=== PATIENT | male | born 1945 | race Caucasian/White ===

== ENCOUNTER → 2017-01-25 | Outpatient (CLI) | payer OTHER, MEDICARE ==
[~2017-01-25] VITALS: Ht 180.3 cm; Wt 104.1 kg
[~2017-01-25] MED LIST: ACID CONTROL150 MG PO; ASPIR-LOW81 MG PO; CAL MAG ZINC +1 EAC1 PO; CENTRUM SILVER1 EAC2 PO; CHROMIUM PICO400 MCG PO; CIALIS5 MG PO; CINNAMON500 MG PO; CO Q-10100 MG PO; CRANBERRY500 M1 PO; FENOFIBRATE160 MG PO; FISH OIL 1,0001 EAC9 PO; GEMFIBROZIL 60600 MG PO; GLIPIZIDE ER2.5 MG PO; GLUCOSAMINE CH1 EAC7 PO; INVOKANA300 MG PO; JANUVIA100 MG PO; LEVOTHYROXIN0.075 MG PO; LIPITOR40 MG PO; METFORMIN HCL1000 M1 PO; MOBIC15 MG PO; OCUVITE SOFTGE1 EAC1 PO; OMEPRAZOLE 20 M20 M1 PO; PLAVIX 75 MG TA75 M1 PO; VIMOVO 500-201 EACH PO; VITAMIN D-32000 UNIT PO; VITAMIN E400 UNIT PO; VITAMINC500 PO
--- NOTE | ~2017-01-25 | HPC ---
[facility] [place] [address] PAIN MANAGEMENT CONSULTATION Name: TORI KEYESD [id number] Admission: 01/25/17 Attend Phys: Arslan Escobedo MD Discharge: Date of : 45 Report #: [id number] THIS REPORT FOR: //name// CC: Camron Escobedo DATE OF SERVICE: 01/25/2017 FOLLOWUP COMPLAINT: Pain in the left back with pain going down the back of my leg and into my calf. HISTORY OF PRESENT ILLNESS: The patient is a 71-year-old gentleman who has been followed in the pain clinic. He has had myofascial pain in the past. He returns today indicating that he has noted a new pain. He has had sciatica in the past. This involved his right leg. He is now having pain and discomfort involving the left leg. Pain radiates down the lower portion of his back, down into the posterior thigh and involving the lateral portion of his calf muscle. He rates the pain as 10/10. He is unable to engage in activities of daily living because of this. He feels that there is a constant cramp radiating down into his left leg. PHYSICAL EXAMINATION: Blood pressure 131/82, pulse 72, respiratory rate 16, room air saturation 97%. The patient has pain and discomfort in the lower portion of his back with radiation down in the L5-S1 distribution on the left side. He notes some weakness, tenderness and pain involving the left calf. IMPRESSION: Lumbar radiculopathy. RECOMMENDATIONS: We discussed the treatment options with the patient. Risks and benefits of the procedure were discussed with the patient and his . Possible complications were reviewed. The patient elects to proceed. PROCEDURE NOTE: The patient was placed in the prone position. Fluoroscopy was used to identify the L5-S1 dermatomal area. After this area had been sterilely prepped with Betadine, 0.25% bupivacaine was infiltrated. A 17-gauge Tuohy with loss of resistance technique was used to gain access to the epidural space. There was no CSF, heme or paresthesia. Total of 80 mg Depo-Medrol, 40 mg triamcinolone and 2 mL of 0.25% bupivacaine was injected. The patient tolerated the procedure well. His pain decreased from 10 to 5 at the time of discharge. He will follow up in the future as needed. The patient will also try Mobic 7.5 mg 1 p.o. daily. He will stop this medication if he notes any GI complaints or [address] [address] PAIN MANAGEMENT CONSULTATION Name: TORI KEYESNARD Room #: REG [facility].#: [id number] Admission: 01/25/17 Attend Phys: Asrlan Escobedo MD Discharge: Date of : 45 Report #: [id number] discomfort. He will call us if he needs. We would like to thank you for letting us participate in his care. We hope he continues to improve. <ELECTRONICALLY SIGNED> By: Arslan Escobedo MD 01/31/17 0914 [id number] 2041 Arslan Escobedo MD /nt
[2017-01-25 11:37] VITALS: BP 131/82
== END | disposition home or self-care (01) ==
LOC: PAIN 06:28
DX: M54.16 Radiculopathy, lumbar region (principal)

== ENCOUNTER → 2017-02-13 | Outpatient (CLI) | payer OTHER, MEDICARE ==
[~2017-02-13] VITALS: Ht 180.3 cm; Wt 103.0 kg
[~2017-02-13] MED LIST changes: +FENOFIBRATE40 MG PO; +NEURONTIN 300300 M1 PO
--- NOTE | ~2017-02-13 | HPC ---
[facility] [place] [address] PAIN MANAGEMENT CONSULTATION Name: TORI KEYESD Room #: REG [facility].#: [id number] Admission: 02/13/17 Attend Phys: Arslan Escobedo MD Discharge: Date of : 45 Report #: [id number] THIS REPORT FOR: //name// CC: Camron Escobedo DATE OF SERVICE: 02/13/2017 FOLLOWUP COMPLAINT: Still having pain going down into the left calf. FOLLOWUP HISTORY: The patient is a 71-year-old gentleman who has been seen in the pain clinic because of lumbar radiculopathy involving the S1 nerve distribution. The patient continues to have pain and discomfort in his left calf. He notes that after standing and taking a few steps he notes worsening of his pain. This does limit his ability to engage in activities of daily living. He rates it intensity as a 6-8 depending on his level of ambulation. Walking and standing are problematic. Notes that his pain improves when repositioning, sitting when lying down. He continues to take medications. He denies any significant increase in his blood glucose level. Meloxicam 15 mg per day has not caused any GI complaints at this point. We would recommend that he stop any nonsteroidals if he starts noticing GI upsets. He continues to have a cramping sensation with radiation down the lateral portion of his right calf. PHYSICAL EXAMINATION: Blood pressure 146/75, pulse 79, respiratory rate 16, room air saturation 96%. The patient has pain and discomfort, which increases in intensity, radiating down into to his left calf and left buttocks. Ambulation exacerbates and worsens his discomfort. IMPRESSION: Continued lumbar radicular pain in the L5-S1 nerve distribution. Lumbar lumbar radiculopathy L5-S1 moderate endplate changes present at L5-S1. Mild loss of disk signal present. Hypertrophic facet changes result in mild bilateral neural foraminal narrowing, which is greater on the patient's left than the right. RECOMMENDATIONS: We discussed the treatment options with the patient. Risks and benefits of another epidural steroid injection were again reviewed. Possible complication of the procedure were discussed. The patient elects to proceed. PROCEDURE NOTE: The patient was placed in the prone position. Fluoroscopy was used to identify the L5-S1 distribution on the left. A 17-gauge Tuohy with loss of resistance technique was used to gain access to the epidural space. There was no CSF, heme or paresthesia. Total of 80 mg Depo-Medrol, 40 mg triamcinolone and 2 mL 0.25% bupivacaine was injected. The patient tolerated the procedure well. [place] [address] PAIN MANAGEMENT CONSULTATION Name: TORI KEYES Room #: REG [facility]#: [id number] Admission: 02/13/17 Attend Phys: Arslan Escobedo MD Discharge: Date of : 45 Report #: [id number] We would like to thank you for letting us participate in his care. We hope he continues to improve. By: [id number] Arslan Escobedo MD /nt
[2017-02-13 08:33] VITALS: BP 146/75
== END ==
LOC: PAIN 07:13
DX: M54.16 Radiculopathy, lumbar region (principal)

== ENCOUNTER → 2017-03-06 | Outpatient (CLI) | payer OTHER, MEDICARE ==
[~2017-03-06] VITALS: Ht 180.3 cm; Wt 103.8 kg
--- NOTE | ~2017-03-06 | HPC ---
[facility] [place] [address] PAIN MANAGEMENT CONSULTATION Name: TORI KEYES Room #: REG [facility].#: [id number] Admission: 03/06/17 Attend Phys: Arslan Escobedo MD Discharge: Date of : 45 Report #: [id number] THIS REPORT FOR: //name// CC: Camron Escobedo PRIMARY CARE PHYSICIAN: Camron Monahan M.D. FOLLOWUP COMPLAINT: The pain is better, but I'm still having some discomfort. FOLLOWUP HISTORY: The patient is a 71-year-old gentleman who has been seen in the pain clinic because of lumbar radiculopathy. He has undergone epidural steroid injections and gleaned benefits from these. He feels that his pain has improved greater than 50% since the injections. He still is having some discomfort in the low portion of his back with pain down into his left buttocks and into his left leg. He feels that another epidural steroid injection would be beneficial and rates his pain as a 4/10. He is still having some discomfort with movement, walking and standing. He does note some improvement when he is resting, lying down or sitting. At this juncture, he would like to proceed with another epidural steroid injection. He has had no problems with the injections. PHYSICAL EXAMINATION: Blood pressure 138/77, pulse 88, respiratory rate 14, room air saturation 97%. The patient has pain and discomfort in the lower portion of his back with pain radiating down into the left leg with numbness, tingling and weakness. IMPRESSION: 1. Lumbar radiculopathy involving the left L5-S1 nerve root distribution. 2. Hypertrophy facet changes at L5-S1 with bilateral neural foraminal narrowing. 3. Diabetes. The patient's blood sugars have been reasonable. RECOMMENDATIONS: Again, we discussed the possible complications associated with an epidural steroid injection. Possible complications regarding his blood sugar were discussed. The patient feels that his pain warrants another injection. PROCEDURE NOTE: The patient was placed in the prone position. Fluoroscopy was used to identify the L5-S1 nerve root area on the left. This area had been sterilely prepped with Betadine and infiltrated with 0.25% bupivacaine. Total of 80 mg Depo-Medrol, 40 mg triamcinolone and 2 mL of 0.25% bupivacaine was injected. A total of 7 seconds fluoro time was used. The patient tolerated the [address] [address] PAIN MANAGEMENT CONSULTATION Name: TORI KEYES [id number] Admission: 03/06/17 Attend Phys: Arslan Escobedo MD Discharge: Date of : 45 Report #: [id number] procedure well. There were no complications. We would like to thank you for letting us participate in his care. We hope he continues to improve. By: [id number] Arslan Escobedo MD /jodie
[2017-03-06 08:46] VITALS: BP 138/77
== END ==
LOC: PAIN 06:43
DX: M54.16 Radiculopathy, lumbar region (principal); M48.07 Spinal stenosis, lumbosacral region; E11.9 Type 2 diabetes mellitus without complications

== ENCOUNTER → 2017-05-01 | Outpatient (CLI) | payer OTHER, MEDICARE | LOC: HYPER 07:10 | DX: E11.622 Type 2 diabetes mellitus with other skin ulcer (principal); L98.411 Non-pressure chronic ulcer of buttock limited to breakdown of skin; I10 Essential (primary) hypertension; E11.65 Type 2 diabetes mellitus with hyperglycemia; E78.5 Hyperlipidemia, unspecified; I25.10 Atherosclerotic heart disease of native coronary artery without angina pectoris; E03.9 Hypothyroidism, unspecified; M19.90 Unspecified osteoarthritis, unspecified site; Z85.51 Personal history of malignant neoplasm of bladder; Z85.46 Personal history of malignant neoplasm of prostate; Z79.84 Long term (current) use of oral hypoglycemic drugs ==

== ENCOUNTER → 2017-05-15 | Outpatient (CLI) | payer OTHER, MEDICARE | LOC: HYPER 07:05 | DX: E11.622 Type 2 diabetes mellitus with other skin ulcer (principal); L98.411 Non-pressure chronic ulcer of buttock limited to breakdown of skin; L89.319 Pressure ulcer of right buttock, unspecified stage; L89.329 Pressure ulcer of left buttock, unspecified stage; I10 Essential (primary) hypertension; E11.65 Type 2 diabetes mellitus with hyperglycemia; E78.5 Hyperlipidemia, unspecified; I25.10 Atherosclerotic heart disease of native coronary artery without angina pectoris; E03.9 Hypothyroidism, unspecified; M19.90 Unspecified osteoarthritis, unspecified site; Z85.46 Personal history of malignant neoplasm of prostate; Z85.51 Personal history of malignant neoplasm of bladder; Z79.84 Long term (current) use of oral hypoglycemic drugs ==

== ENCOUNTER → 2017-05-29 | Outpatient (CLI) | payer OTHER, MEDICARE | LOC: HYPER 06:58 | DX: E11.622 Type 2 diabetes mellitus with other skin ulcer (principal); L98.411 Non-pressure chronic ulcer of buttock limited to breakdown of skin; L89.319 Pressure ulcer of right buttock, unspecified stage; L89.329 Pressure ulcer of left buttock, unspecified stage; I10 Essential (primary) hypertension; M51.36 Other intervertebral disc degeneration, lumbar region; R21 Rash and other nonspecific skin eruption; E78.5 Hyperlipidemia, unspecified; E03.9 Hypothyroidism, unspecified; M19.90 Unspecified osteoarthritis, unspecified site; Z85.51 Personal history of malignant neoplasm of bladder; Z79.84 Long term (current) use of oral hypoglycemic drugs ==

== ENCOUNTER → 2017-06-13 | Outpatient (CLI) | payer OTHER, MEDICARE | LOC: HYPER 07:10 | DX: L89.319 Pressure ulcer of right buttock, unspecified stage (principal); L89.329 Pressure ulcer of left buttock, unspecified stage; E11.622 Type 2 diabetes mellitus with other skin ulcer; L98.411 Non-pressure chronic ulcer of buttock limited to breakdown of skin; I10 Essential (primary) hypertension; E11.65 Type 2 diabetes mellitus with hyperglycemia; M51.36 Other intervertebral disc degeneration, lumbar region; R21 Rash and other nonspecific skin eruption; E78.5 Hyperlipidemia, unspecified; I25.10 Atherosclerotic heart disease of native coronary artery without angina pectoris; E03.9 Hypothyroidism, unspecified; M19.90 Unspecified osteoarthritis, unspecified site; Z85.46 Personal history of malignant neoplasm of prostate; Z79.84 Long term (current) use of oral hypoglycemic drugs; Z85.51 Personal history of malignant neoplasm of bladder ==

== ENCOUNTER → 2017-06-21 | Outpatient (CLI) | payer OTHER, MEDICARE ==
[~2017-06-21] VITALS: Ht 180.3 cm; Wt 107.5 kg
[~2017-06-21] MED LIST changes: +INVOKANA100 MG PO
--- NOTE | ~2017-06-21 | HPC ---
[facility] [place] [address] PAIN MANAGEMENT CONSULTATION Name: STEPHYTORI ENRIQUEZD Room #: REG [facility]#: [id number] Admission: 06/21/17 Attend Phys: Arslan Escobedo MD Discharge: Date of : 45 Report #: [id number] THIS REPORT FOR: //name// CC: Camron Burgos DATE OF SERVICE: 06/21/2017 FOLLOWUP COMPLAINT: "I have had some pain in my back." FOLLOWUP HISTORY: The patient is a 71-year-old gentleman who has been seen in the pain clinic in the past because of lumbar radiculopathy as well as spinal stenosis. He has undergone epidural steroid injections and gleaned benefits from the epidural steroid injection. He has less pain in the L5-S1 dermatomal area. He notes pain and discomfort across the lower portion of his back and in the area of the posterior superior iliac spine areas. He rates his discomfort as a 6/10. He does still experience some cramping, aching discomfort, which is exacerbated by walking and standing. He has had no complications from the last treatment course. PHYSICAL EXAMINATION: Height 180 cm, weight 107 kilograms. BMI is 33, blood pressure 144/81, pulse 71, respiratory rate 16, room air saturation is 97%. The patient has pain and discomfort in the latissimus dorsi on the left and right in the region of the gluteus vesna and posterior superior iliac spine. Palpation in these areas reproduced the patient's discomfort. IMPRESSION: 1. Myofascial pain, area of the latissimus dorsi/gluteus vesna and posterior superior iliac spine. Palpation in these areas reproduced pain on the left as well as the right. 2. Improved pain and resolution of pain in the L5-S1 distribution after a series of epidural steroid injections. 3. Diabetes mellitus. This patient will monitor his blood sugars. RECOMMENDATIONS: We discussed treatment option with the patient and his . Risks and benefits of trigger point injections were discussed. Possible complications which could include infection, increased muscle soreness, nerve irritation were explained and the patient elects to proceed. PROCEDURE NOTE: The patient was placed in the sitting position. His back was sterilely prepped with a chlorhexidine solution. A 25-gauge needle was then advanced in the area of the gluteus vesna/latissimus dorsi near the posterior superior iliac spine on the left as well as on the right. A total of 10 mL 0.5% bupivacaine and 40 mg Depo-Medrol/20 mg triamcinolone was injected on each of [address] [address] PAIN MANAGEMENT CONSULTATION Name: TORI KEYES [facility]: [facility] [id number] Admission: 06/21/17 Attend Phys: Arslan Escobedo MD Discharge: Date of : 45 Report #: [id number] the sides. The patient tolerated the procedure well. There were no complications. He remained in the pain clinic for an appropriate amount of time. He rates his pain as a 2.5. He will follow up in the future as needed. We would like to thank you for letting us participate in his care. We hope he continues to improve. <ELECTRONICALLY SIGNED> By: Arslan Escobedo MD 06/26/17 0845 [id number] 1734 Arslan Escobedo MD /nt
[2017-06-21 11:15] VITALS: BP 144/81
== END | disposition home or self-care (01) ==
LOC: PAIN 08:23
DX: M79.1 Myalgia (principal); G89.29 Other chronic pain; E11.9 Type 2 diabetes mellitus without complications; Z79.82 Long term (current) use of aspirin; Z79.899 Other long term (current) drug therapy; Z98.890 Other specified postprocedural states

== ENCOUNTER → 2017-06-27 | Outpatient (CLI) | payer OTHER, MEDICARE | LOC: HYPER 07:13 | DX: E11.622 Type 2 diabetes mellitus with other skin ulcer (principal); L98.411 Non-pressure chronic ulcer of buttock limited to breakdown of skin; R21 Rash and other nonspecific skin eruption; I10 Essential (primary) hypertension; E11.65 Type 2 diabetes mellitus with hyperglycemia; M51.36 Other intervertebral disc degeneration, lumbar region; E78.5 Hyperlipidemia, unspecified; E03.9 Hypothyroidism, unspecified; Z85.46 Personal history of malignant neoplasm of prostate; M19.90 Unspecified osteoarthritis, unspecified site; Z85.51 Personal history of malignant neoplasm of bladder; Z79.84 Long term (current) use of oral hypoglycemic drugs ==

== ENCOUNTER → 2017-07-04 | Outpatient (CLI) | payer OTHER, MEDICARE | LOC: HYPER 07-03 14:34 | DX: E11.622 Type 2 diabetes mellitus with other skin ulcer (principal); L98.411 Non-pressure chronic ulcer of buttock limited to breakdown of skin; R21 Rash and other nonspecific skin eruption; I10 Essential (primary) hypertension; E11.65 Type 2 diabetes mellitus with hyperglycemia; M51.36 Other intervertebral disc degeneration, lumbar region; E78.5 Hyperlipidemia, unspecified; I25.10 Atherosclerotic heart disease of native coronary artery without angina pectoris; E03.9 Hypothyroidism, unspecified; M19.90 Unspecified osteoarthritis, unspecified site; Z85.46 Personal history of malignant neoplasm of prostate; Z85.51 Personal history of malignant neoplasm of bladder; Z79.84 Long term (current) use of oral hypoglycemic drugs ==

== ENCOUNTER → 2017-07-31 | Outpatient (CLI) | payer OTHER, MEDICARE | LOC: HYPER 06:49 | DX: E11.622 Type 2 diabetes mellitus with other skin ulcer (principal); L98.411 Non-pressure chronic ulcer of buttock limited to breakdown of skin; L02.31 Cutaneous abscess of buttock; R21 Rash and other nonspecific skin eruption; I10 Essential (primary) hypertension; M51.36 Other intervertebral disc degeneration, lumbar region; Z79.84 Long term (current) use of oral hypoglycemic drugs; E78.5 Hyperlipidemia, unspecified; E03.9 Hypothyroidism, unspecified; Z85.46 Personal history of malignant neoplasm of prostate; Z85.51 Personal history of malignant neoplasm of bladder ==

== ENCOUNTER → 2017-08-02 | Outpatient (CLI) | payer OTHER, MEDICARE | LOC: CAT 07:36 → EDSTATUS 13:13 | DX: L89.329 Pressure ulcer of left buttock, unspecified stage (principal) ==

== ENCOUNTER → 2017-08-20 | Outpatient (CLI) | payer OTHER, MEDICARE | LOC: HYPER 07:08 | DX: E11.622 Type 2 diabetes mellitus with other skin ulcer (principal); L98.491 Non-pressure chronic ulcer of skin of other sites limited to breakdown of skin; L02.31 Cutaneous abscess of buttock; R21 Rash and other nonspecific skin eruption; I10 Essential (primary) hypertension; M51.36 Other intervertebral disc degeneration, lumbar region; Z79.84 Long term (current) use of oral hypoglycemic drugs; E78.5 Hyperlipidemia, unspecified; E03.9 Hypothyroidism, unspecified; M19.90 Unspecified osteoarthritis, unspecified site; Z85.51 Personal history of malignant neoplasm of bladder; Z85.46 Personal history of malignant neoplasm of prostate ==

== ENCOUNTER → 2017-10-08 | Outpatient (CLI) | payer OTHER, MEDICARE ==
[~2017-10-08] MED LIST changes: +ADULT LOW DOSE81 MG PO; +LEVOTHYROXINE100 MCG PO; +ULTRAM 50MG TAB50 MG PO
== END ==
LOC: HYPER 06:47
DX: E11.622 Type 2 diabetes mellitus with other skin ulcer (principal); L98.411 Non-pressure chronic ulcer of buttock limited to breakdown of skin; R21 Rash and other nonspecific skin eruption; I10 Essential (primary) hypertension; E11.65 Type 2 diabetes mellitus with hyperglycemia; Z79.84 Long term (current) use of oral hypoglycemic drugs; M51.36 Other intervertebral disc degeneration, lumbar region; E78.5 Hyperlipidemia, unspecified; E03.9 Hypothyroidism, unspecified; Z85.46 Personal history of malignant neoplasm of prostate; M19.90 Unspecified osteoarthritis, unspecified site; Z85.51 Personal history of malignant neoplasm of bladder

== ENCOUNTER → 2017-11-12 | Outpatient (CLI) | payer OTHER, MEDICARE | LOC: HYPER 07:09 | DX: T81.89XD Other complications of procedures, not elsewhere classified, subsequent encounter (principal); E11.622 Type 2 diabetes mellitus with other skin ulcer; L98.411 Non-pressure chronic ulcer of buttock limited to breakdown of skin; E11.65 Type 2 diabetes mellitus with hyperglycemia; I10 Essential (primary) hypertension; I25.10 Atherosclerotic heart disease of native coronary artery without angina pectoris; E78.5 Hyperlipidemia, unspecified; E03.9 Hypothyroidism, unspecified; M51.36 Other intervertebral disc degeneration, lumbar region; M19.90 Unspecified osteoarthritis, unspecified site; Z85.51 Personal history of malignant neoplasm of bladder; Z85.46 Personal history of malignant neoplasm of prostate; Z79.84 Long term (current) use of oral hypoglycemic drugs; Y83.8 Other surgical procedures as the cause of abnormal reaction of the patient, or of later complication, without mention of misadventure at the time of the procedure ==

== ENCOUNTER → 2017-12-03 | Outpatient (CLI) | payer OTHER, MEDICARE | LOC: HYPER 06:54 | DX: T81.89XD Other complications of procedures, not elsewhere classified, subsequent encounter (principal); E11.622 Type 2 diabetes mellitus with other skin ulcer; L98.411 Non-pressure chronic ulcer of buttock limited to breakdown of skin; I10 Essential (primary) hypertension; E78.5 Hyperlipidemia, unspecified; I25.10 Atherosclerotic heart disease of native coronary artery without angina pectoris; E03.9 Hypothyroidism, unspecified; M19.90 Unspecified osteoarthritis, unspecified site; Z85.51 Personal history of malignant neoplasm of bladder; Z85.46 Personal history of malignant neoplasm of prostate; Z79.84 Long term (current) use of oral hypoglycemic drugs; Y83.8 Other surgical procedures as the cause of abnormal reaction of the patient, or of later complication, without mention of misadventure at the time of the procedure ==

== ENCOUNTER → 2018-01-07 | Outpatient (CLI) | payer OTHER, MEDICARE | LOC: HYPER 06:49 | DX: T81.89XD Other complications of procedures, not elsewhere classified, subsequent encounter (principal); E11.622 Type 2 diabetes mellitus with other skin ulcer; L98.411 Non-pressure chronic ulcer of buttock limited to breakdown of skin; R21 Rash and other nonspecific skin eruption; I10 Essential (primary) hypertension; M51.36 Other intervertebral disc degeneration, lumbar region; E78.5 Hyperlipidemia, unspecified; E03.9 Hypothyroidism, unspecified; Z79.84 Long term (current) use of oral hypoglycemic drugs; Z85.46 Personal history of malignant neoplasm of prostate; Y83.8 Other surgical procedures as the cause of abnormal reaction of the patient, or of later complication, without mention of misadventure at the time of the procedure ==

== ENCOUNTER → 2018-02-04 | Outpatient (CLI) | payer OTHER, MEDICARE | LOC: HYPER 07:00 | DX: T81.89XD Other complications of procedures, not elsewhere classified, subsequent encounter (principal); E11.65 Type 2 diabetes mellitus with hyperglycemia; I10 Essential (primary) hypertension; M51.36 Other intervertebral disc degeneration, lumbar region; E78.5 Hyperlipidemia, unspecified; E03.9 Hypothyroidism, unspecified; M19.90 Unspecified osteoarthritis, unspecified site; L02.31 Cutaneous abscess of buttock; R21 Rash and other nonspecific skin eruption; Z79.84 Long term (current) use of oral hypoglycemic drugs; Z85.46 Personal history of malignant neoplasm of prostate; Y83.8 Other surgical procedures as the cause of abnormal reaction of the patient, or of later complication, without mention of misadventure at the time of the procedure ==

== ENCOUNTER → 2018-03-18 | Outpatient (CLI) | payer OTHER, MEDICARE | LOC: HYPER 06:57 | DX: T81.89XD Other complications of procedures, not elsewhere classified, subsequent encounter (principal); I10 Essential (primary) hypertension; E78.5 Hyperlipidemia, unspecified; E03.9 Hypothyroidism, unspecified; M19.90 Unspecified osteoarthritis, unspecified site; M51.36 Other intervertebral disc degeneration, lumbar region; Z79.84 Long term (current) use of oral hypoglycemic drugs; Z85.46 Personal history of malignant neoplasm of prostate; Z85.51 Personal history of malignant neoplasm of bladder; Y83.8 Other surgical procedures as the cause of abnormal reaction of the patient, or of later complication, without mention of misadventure at the time of the procedure ==

== ENCOUNTER → 2018-05-27 | Outpatient (CLI) | payer OTHER, MEDICARE | LOC: HYPER 06:55 | DX: T81.89XD Other complications of procedures, not elsewhere classified, subsequent encounter (principal); I10 Essential (primary) hypertension; E11.65 Type 2 diabetes mellitus with hyperglycemia; M51.36 Other intervertebral disc degeneration, lumbar region; E78.5 Hyperlipidemia, unspecified; I25.10 Atherosclerotic heart disease of native coronary artery without angina pectoris; E03.9 Hypothyroidism, unspecified; M19.90 Unspecified osteoarthritis, unspecified site; Z85.46 Personal history of malignant neoplasm of prostate; Z85.51 Personal history of malignant neoplasm of bladder; Z79.84 Long term (current) use of oral hypoglycemic drugs; Y83.8 Other surgical procedures as the cause of abnormal reaction of the patient, or of later complication, without mention of misadventure at the time of the procedure ==

== ENCOUNTER → 2019-09-16 | Outpatient (CLI) | payer OTHER, MEDICARE | LOC: HYPER 09-02 13:42 | DX: E11.622 Type 2 diabetes mellitus with other skin ulcer (principal); L89.312 Pressure ulcer of right buttock, stage 2; L98.411 Non-pressure chronic ulcer of buttock limited to breakdown of skin; I10 Essential (primary) hypertension; L02.31 Cutaneous abscess of buttock; M51.36 Other intervertebral disc degeneration, lumbar region; E78.5 Hyperlipidemia, unspecified; E03.9 Hypothyroidism, unspecified; M19.90 Unspecified osteoarthritis, unspecified site; R21 Rash and other nonspecific skin eruption; Z85.51 Personal history of malignant neoplasm of bladder; Z95.818 Presence of other cardiac implants and grafts; Z79.84 Long term (current) use of oral hypoglycemic drugs; Z85.46 Personal history of malignant neoplasm of prostate ==